=== PATIENT | female | born 1965 | race Asian ===

== ENCOUNTER 2017-10-28 21:33 | Emergency (ER) | payer BC ==
[~2017-10-28] VITALS: Ht 149.9 cm; Wt 68.0 kg
[2017-10-28] MEDS ORDERED: ALLOPURINOL100 MG PO (22:11)
[2017-10-28] MEDS ORDERED: LEVOTHYROXINE50 MCG PO (22:11)
[2017-10-28] MEDS ORDERED: MOTRIN800 MG PO (23:03)
[2017-10-28] MEDS ORDERED: NORCO 7.5/321 TABLET PO (23:03)
[2017-10-28 23:38] VITALS: BP 151/87
== END 2017-10-28 23:39 | disposition home or self-care (01) ==
LOC: EXP 21:33 → EME 21:33 → EXP 23:39
DX: S89.82XA Other specified injuries of left lower leg, initial encounter (principal); M23.92 Unspecified internal derangement of left knee; S60.222A Contusion of left hand, initial encounter; S80.02XA Contusion of left knee, initial encounter; S60.221A Contusion of right hand, initial encounter; W01.198A Fall on same level from slipping, tripping and stumbling with subsequent striking against other object, initial encounter; Y92.481 Parking lot as the place of occurrence of the external cause; M10.9 Gout, unspecified; Z88.2 Allergy status to sulfonamides
CPT/HCPCS: 73564; 99281; 99285